=== PATIENT | male | born 1990 | race Caucasian/White ===

== ENCOUNTER 2024-08-12 21:22 | Emergency (ER) | payer SELFPAY ==
[2024-08-12 21:26] VITALS: BP 172/111; PULSE 100; TEMP 36.5; O2SAT 97; BMI 35.4
--- NOTE | 2024-08-12 21:43 | XR_ITS ---
The [address] [address] Patient Name: JOELLE RM MRN: [id number] date: 1990 Sex: M Assigned Patient Location: ER Current Patient Location: ED.MAIN Accession/Order Number: [id number] Exam Date: 08/12/2024 22:03 Report Date: 08/12/2024 22:22 At the request of: EDGAR RAMÍREZ Procedure: XR chest 1V XR chest 1V 08/12/2024 9:03 PM CDT: History: CP Comparison: None. Technique: 1 view chest Findings: The cardiomediastinal silhouette is normal. The lungs are clear without infiltrate, effusion, or pneumothorax. The bones are intact. XR/XR chest 1V Impression: No acute cardiopulmonary process. Electronically authenticated by: FLY HERNANDEZ Date: 08/12/2024 22:22
--- NOTE | 2024-08-12 21:43 | ECG_ITS ---
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
--- NOTE | 2024-08-12 21:44 | ED_ITS ---
HPI - Chest Pain General Chief Complaint: Chest Pain Stated Complaint: Chest Pain Time Seen by Provider: 08/12/24 21:30 History of Present Illness HPI narrative: 34-year-old male presents for chest pain. It for started about 1230 this afternoon when he was getting ready to eat. He states he took a bite or 2 and then got sick and he vomited in the left side of his chest was hurting. He went to another hospital's emergency department and was evaluated. He states they did an x-ray and an EKG and blood test and he was discharged. After he got home he ate some food for dinner and vomited again and had some pain on the left side of his chest. There is been no trauma or fever or productive cough. The pain does not seem to radiate. He is pain-free now. Related Data Home Medications ?Medication ?Instructions ?Recorded ?Confirmed No Known Home Medications 08/12/24 08/12/24 Allergies Allergy/AdvReac Type Severity Reaction Status Date / Time No Known Drug Allergies Allergy Verified 08/12/24 21:30 Review of Systems ROS Narrative A ten point review of systems is negative except as noted above. Exam Narrative Exam Narrative: Nurses note and vital signs reviewed and patient is not hypoxic. General: The patient appears well and in no apparent distress. Patient is resting comfortably on cart. Skin: Warm, dry, no pallor noted. There is no rash noted. Head: Normocephalic, atraumatic Eye: Normal conjunctiva, no drainage Ears, Nose, Mouth, and Throat: oral mucosa is moist. Nares patent. Cardiovascular: Regular Rate and Rhythm Respiratory: Patient is in no distress, no accessory muscle use, lungs are clear to auscultation, no wheezing, rales or rhonchi Back: non-tender GI: Soft and nontender Musculoskeletal: The patient has no evidence of calf tenderness, no pitting edema, symmetrical pulses noted bilaterally Neurological: A&O, normal speech Psychiatric: Cooperative Constitutional Vital Signs, click to edit/add: Last Vital Signs Temp 97.7 F 08/12/24 21:26 Pulse 100 H 08/12/24 21:26 Resp 18 08/12/24 21:26 BP 140/95 H 08/12/24 22:50 Pulse Ox 97 08/12/24 21:26 O2 Del Method Room Air 08/12/24 21:26 Course Vital Signs Vital signs: Vital Signs Temperature 97.7 F 08/12/24 21:26 Pulse Rate 100 H 08/12/24 21:26 Respiratory Rate 18 08/12/24 21:26 Blood Pressure 172/111 H 08/12/24 21:26 Pulse Oximetry 97 08/12/24 21:26 Oxygen Delivery Method Room Air 08/12/24 21:26 Temperature 97.7 F 08/12/24 21:26 Pulse Rate 100 H 08/12/24 21:26 Respiratory Rate 18 08/12/24 21:26 Blood Pressure 140/95 H 08/12/24 22:50 Pulse Oximetry 97 08/12/24 21:26 Oxygen Delivery Method Room Air 08/12/24 21:26 MDM - Chest Pain MDM Narrative Medical decision making narrative: His workup here including troponin is negative. I obtained his records from [facility] and he had a negative workup there as well including troponin. He will be discharged home and was referred to cardiology for appropriate follow-up. Treatment diagnosis and follow-up were discussed with the patient and his sister. Differential Diagnosis Differential diagnosis: Likely pneumothorax, unstable angina pectoris, atypical chest pain, st elevation myocardial infarction, costochondritis and chest pain Lab Data Attestation: I reviewed the patient's lab results. Labs: Lab Results 08/12/24 Range/Units 21:36 WBC 7.5 (4.0-11.0) 10^3/uL RBC 4.73 (4.70-6.10) 10^6/uL Hgb 15.9 (14.0-18.0) g/dL Hct 44.1 (42.0-54.0) % MCV 93.2 (80.0-94.0) fL MCH 33.6 (25.9-34.0) pg MCHC 36.1 H (29.9-35.2) g/dL RDW 13.4 (11.0-15.0) % Plt Count 221 (150-450) 10^3/uL MPV 10.2 (9.5-13.5) fL Neut % (Auto) 75.3 H (43.0-75.0) % Lymph % (Auto) 13.8 L (20.5-60.0) % [place] % (Auto) 9.4 (1.7-12.0) % Eos % (Auto) 0.8 L (0.9-7.0) % Baso % (Auto) 0.3 (0.2-2.0) % Neut # (Auto) 5.6 (1.4-6.5) 10^3/uL Lymph # (Auto) 1.0 L (1.2-3.8) 10^3/uL [place] # (Auto) 0.7 (0.3-0.8) 10^3/uL Eos # (Auto) 0.1 (0.0-0.7) 10^3/uL Baso # (Auto) 0.0 (0.0-0.1) 10^3/uL Abs Immat Gran (auto) 0.03 (0.00-0.03) 10^3/uL Imm/Tot Granulo (auto) 0.4 (0.0-0.5) % Sodium 139 (136-145) mmol/L Potassium 3.3 L (3.5-5.1) mmol/L Chloride 104 (98-107) mmol/L Carbon Dioxide 25.8 (21.0-32.0) mmol/L Anion Gap 12.5 BUN 9.0 (7.0-18.0) mg/dL Creatinine 1.08 (0.70-1.30) mg/dL Est GFR ( Amer) >60 (>=60) Est GFR (Non-Af Amer) >60 (>=60) BUN/Creatinine Ratio 8.3 Glucose 117 H (74-106) mg/dL Calcium 9.1 (8.5-10.1) mg/dL Troponin I High Sens 4.1 (4.0-76.1) pg/mL Imaging Data Chest x-ray: Radiologist's impression: ITS Impressions Chest X-Ray 08/12/24 21:43 Impression: No acute cardiopulmonary process. Electronically authenticated by: FLY HERNANDEZ Date: 08/12/2024 22:22 ECG Data Attestation: I personally reviewed and interpreted this ECG as follows: (EKG on my interpretation shows sinus rhythm with a rate of 89 and no acute change.) Heart Score History: Slightly/Non-Suspicious ECG: Normal Age: <45 years Risk Factors: 1 or 2 Risk Factors Troponin: <Normal Limit Total Heart Score Recommendations & Risks:: 1 Discharge Plan Discharge Chief Complaint: Chest Pain Clinical Impression: Chest pain Patient Disposition: Home, Self-Care Time of Disposition Decision: 22:52 Condition: Good Mode of Transportation: Private Vehicle Prescriptions / Home Meds: No Action No Known Home Medications Print Language: Khmer Instructions: Chest Pain (ED) Referrals: Physician,Non-Staff, [Primary Care Provider] - 1 week Horacio Cedillo MD [Physician] - 1 week
[2024-08-12 22:21] LABS: Anion Gap 12.5; BUN Creatinine Ratio 8.3; Calcium 9.1 mg/dL (8.5-10.1); Carbon Dioxide 25.8 mmol/L (21.0-32.0); Chloride 104 mmol/L (98-107); Estimated GFR (African America >60 (>=60); Estimated GFR (Non-African Ame >60 (>=60); Glucose 117 mg/dL (74-106); Potassium 3.3 mmol/L (3.5-5.1); Sodium 139 mmol/L (136-145); Troponin I High Sensitivity 4.1 pg/mL (4.0-76.1)
[2024-08-12 22:33] LABS: Basophils Percent Auto 0.3 % (0.2-2.0); Eosinophils Absolute Auto 0.1 10^3/uL (0.0-0.7); Eosinophils Percent Auto 0.8 % (0.9-7.0); Hematocrit 44.1 % (42.0-54.0); Hemoglobin 15.9 g/dL (14.0-18.0); Immature Granulocytes Abs Auto 0.03 10^3/uL (0.00-0.03); Immature Granulocytes Pct Auto 0.4 % (0.0-0.5); Lymphocytes Percent Auto 13.8 % (20.5-60.0); Mean Corpuscular HGB Conc 36.1 g/dL (29.9-35.2); Mean Corpuscular Hemoglobin 33.6 pg (25.9-34.0); Mean Corpuscular Volume 93.2 fL (80.0-94.0); Mean Platelet Volume 10.2 fL (9.5-13.5); Monocytes Absolute Auto 0.7 10^3/uL (0.3-0.8); Monocytes Percent Auto 9.4 % (1.7-12.0); Neutrophils Absolute Auto 5.6 10^3/uL (1.4-6.5); Neutrophils Percent Auto 75.3 % (43.0-75.0); Platelet Count 221 10^3/uL (150-450); Red Blood Count 4.73 10^6/uL (4.70-6.10); Red Cell Distribution Width 13.4 % (11.0-15.0); White Blood Count 7.5 10^3/uL (4.0-11.0)
[2024-08-12 22:50] VITALS: BP 140/95
== END 2024-08-12 23:00 | disposition home or self-care (01) ==
PROVIDERS: Emergency Provider Emergency Medicine
DX: R07.9 Chest pain, unspecified (principal)
CPT/HCPCS: 36415; 71045; 80048; 84484; 85025; 93005; 99285